=== PATIENT | male | born 1945 | race Caucasian/White ===

== ENCOUNTER → 2017-02-07 | Outpatient (CLI) | payer MEDICARE, OTHER ==
[~2017-02-07] MED LIST: ASPIRIN EC81 MG PO; BRILINTA90 MG PO; LEVOTHROID (SY50 MCG PO; NORCO 5-325 TA1 EACH PO; NORVASC5 MG PO; OMEPRAZOLE40 MG PO; PRESERVISION A1 EACH PO; TOPROL XL25 MG PO; ZOCOR40 MG PO; [UNRECOGNIZED DRUG - CODE] PO
== END | disposition disaster alternative care site (69) ==
LOC: GRAD 08:16
PROC: BT1BYZZ Fluoroscopy of Bladder and Urethra using Other Contrast (ICD-10-PCS; principal; 2017-02-07)
DX: N35.9 Urethral stricture, unspecified (principal)

== ENCOUNTER → 2017-05-24 | Day surgery (SDC) | payer MEDICARE, OTHER ==
[~2017-05-24] VITALS: Ht 157.5 cm; Wt 101.5 kg
--- NOTE | ~2017-05-24 | OR ---
PATIENT'S NAME: DONALDO SILVA [facility] AGE: 71 Y [address] ROOM: [place] [address] LOCATION: [facility] [place] ADMIT DATE: 05/24/2017 OR/Procedure Report DISCHARGE DATE: FAMILY PHYSICIAN: Ayden Donnelly MD ATTENDING PHYSICIAN: SHARI VELAZQUEZ SURGEON: Shari Velazquez MD MARINE ENGINE DRIVER: None. DATE OF PROCEDURE: 05/24/2017 PREOPERATIVE DIAGNOSIS: Recurrent urethral stricture disease. POSTOPERATIVE DIAGNOSIS: Recurrent urethral stricture disease. ANESTHESIA ADMINISTERED: Monitored anesthesia care, local. PROCEDURES PERFORMED: 1. Cystoscopy with urethral dilation. 2. Placement of suprapubic tube catheter. INDICATIONS FOR PROCEDURE: The patient is a pleasant 71-year-old male with history of recurrent urethral stricture disease despite multiple endoscopic interventions with dilation in the past. He continues to have to perform self intermittent urethral dilation. The patient is interested in definitive treatment with urethroplasty and is needing urethral rest for 3 months prior to the procedure. He was explained the risks, benefits, indications, and alternatives to the above procedures, wished to proceed, and consented freely. DESCRIPTION OF PROCEDURE: The patient was brought back to the operating room where he was placed on the OR table in the supine position. A surgical time- out was called where patient identification, surgical site, and procedures were then verified. We also did verify that the patient received an IV Levaquin antibiotic within an hour of beginning the procedure. The patient then underwent successful administration of monitored anesthesia care. The patient was then moved and placed in a low lithotomy position. His genital and suprapubic areas were then prepped and draped in the usual sterile fashion. I began by advancing the rigid cystoscope easily into the patient's urethra. I did come across the previously described bulbar urethral stricture which was approximately 14-Armenian in caliber and was not passable with the rigid cystoscope. I then carefully advanced a Super Stiff Amplatz wire across the area of stricture and up into his bladder. Then, over the wire, I began sequential dilations using the S-Curve urethral dilators, starting at 14- Armenian and working up sequentially to 24-Armenian in caliber. I then removed the wire and then was able to pass the Lowsley retractor, easily traversing the area of stricture and up into his bladder. I then instilled some local anesthetic in the suprapubic region and then made a vertical incision and was PATIENT'S NAME: DONALDO SILVA [facility] AGE: 71 Y [address] ROOM: [place], [place] [address] LOCATION: [facility] [place] ADMIT DATE: 05/24/2017 OR/Procedure Report DISCHARGE DATE: FAMILY PHYSICIAN: Ayden Donnelly MD ATTENDING PHYSICIAN: SHARI VELAZQUEZ able to dissect down through his subcutaneous tissues and deliver the Lowsley retractor up through the suprapubic incision. I then inserted a 24-Armenian silicone catheter into the Lowsley retractor and brought this down out through his urethral meatus. I then carefully readvanced the catheter back into his bladder, following it with cystoscopy, and then once nicely seated within his bladder, I placed 20 mL of sterile water in the balloon. 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 He did have some mild bladder trabeculation. I then secured the suprapubic catheter with a drain stitch, and dressings were placed around the catheter, and this was left to gravity drainage. The patient did tolerate the procedure well. The patient was then taken out of the lithotomy position where he was then awoken from monitored anesthesia care, transferred to the recovery bed, and transported to the recovery room in good condition. COMPLICATIONS: None. DRAINS: Indwelling 24-Armenian suprapubic tube catheter to gravity drainage. SPECIMENS: None. ESTIMATED BLOOD LOSS: Minimal. FOLLOWUP PLAN: We will plan to have the patient follow back up in [facility]rology Clinic for his initial suprapubic tube change in 4 weeks from now. Again, the plan will be for him to undergo at least 3 months of urethral rest before performing urethroplasty in which case we will also need a retrograde urethrogram prior to the procedure. SHARI VELAZQUEZ MD GP/susan /[id number] CC: MD Juan Mayer MD [facility] [address] [place] [address] d: t: 05/24/17 1230, OPERATIVE SUMMARY
[2017-05-24 07:25] LABS: BASOPHIL # 0.1 K/uL (0.0-0.2); BASOPHIL % 0.9 %; EOSINOPHIL # 0.3 K/uL (0.0-0.5); EOSINOPHIL % 4.6 %; HEMATOCRIT 43.3 % (37.0-53.0); HEMOGLOBIN 15.5 g/dL (11.0-16.0); IMMATURE GRANULOCYTE % 0.2 %; LYMPHOCYTE # 1.6 K/uL (0.8-4.0); LYMPHOCYTE % 27.6 %; MCH 31.9 pg (27.0-34.0); MCHC 35.8 gm/dL (32.0-36.5); MCV 89.1 fl (83.0-98.0); MONOCYTE # 0.8 K/uL (0.0-1.0); MONOCYTE % 13.7 %; NRBC % 0 /100WBC (0-0.00); PLATELET COUNT 169 K/uL (150-450); RBC 4.86 M/uL (3.50-5.50); WBC 5.6 K/uL (4.0-11.0)
[2017-05-24 07:46] LABS: ALBUMIN 3.6 gm/dL (3.5-5.0); CALCIUM 8.7 mg/dL (8.5-10.5); TOTAL BILIRUBIN 0.9 mg/dL (0.0-1.5)
[2017-05-24 08:06] LABS: ANION GAP 11.1 (10.0-19.0); POTASSIUM 4.1 mMol/L (3.7-5.1)
== END ==
LOC: GPOC 05-21 09:00 → GSDC 06:43 → GPOC 07:00
PROVIDERS: Urology
PROC: 0T7D8DZ Dilation of Urethra with Intraluminal Device, Via Natural or Artificial Opening Endoscopic (ICD-10-PCS; principal; 2017-05-24)
PROC: 0T9B00Z Drainage of Bladder with Drainage Device, Open Approach (ICD-10-PCS; 2017-05-24)
DX: N35.9 Urethral stricture, unspecified (principal); K21.9 Gastro-esophageal reflux disease without esophagitis; I10 Essential (primary) hypertension; Z79.82 Long term (current) use of aspirin; Z79.899 Other long term (current) drug therapy; Z79.52 Long term (current) use of systemic steroids
CPT/HCPCS: J1956; J2001; J7030